=== PATIENT | female | born 2000 | race Caucasian/White ===

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

== ENCOUNTER 2021-01-04 18:23 | Inpatient (IN) | payer MEDICAID ==
[~2021-01-04] VITALS: Ht 162.6 cm; Wt 45.9 kg
[2021-01-04 20:45] LABS: BASO % 0.4 % (0.0-2.0); EOS # 0.1 (0.0-0.7); EOS % 0.5 % (0-4.0); GRAN # 8.3 (1.4-6.5); GRAN % 76.2 % (42.2-75.2); HEMOGLOBIN 11.9 g/dl (12.0-15.0); LYMPH # 1.6 (1.2-3.4); LYMPH % 14.4 % (20.0-51.0); MEAN CELL VOLUME 86 fl (80.0-95.0); MEAN CORPUSCULAR HEMOGLOBIN 31 pg (26.0-32.0); MEAN CORPUSCULAR HGB CONC 36 g/dl (33.0-37.0); MEAN PLATELET VOLUME 9.1 fl (7.4-10.4); MONO # 0.9 (0.1-0.6); PLATELET COUNT 224 K/mm3 (130-400); RED BLOOD COUNT 3.79 M/mm3 (4.10-5.30); REDCELL DISTRIBUTION WIDTH-CV 12.7 % (11.5-14.5)
[2021-01-04 20:46] LABS: HEMATOCRIT 32.7 % (35.0-45.0)
[2021-01-04 20:59] LABS: ALBUMIN 3.7 gm/dL (3.5-5.0); BILIRUBIN,TOTAL 0.2 mg/dL (0.0-1.0); CALCIUM 8.6 mg/dL (8.4-10.2); CREATININE, serum 0.47 (0.52-1.25); POTASSIUM 3.4 mmol/L (3.4-5.0); TOTAL PROTEIN 6.7 gm/dL (6.4-8.2)
[2021-01-04 21:42] LABS: COLLECTION METHOD CLEAN CATCH
[2021-01-04 21:48] LABS: MUCOUS Present /lpf; PH 7 (5-8); SQUAMOUS EPITHELIAL 0-2 /hpf; URINE APPEARANCE Hazy; URINE BACTERIA Rare /hpf; URINE BILIRUBIN Negative (NEGATIVE); URINE BLOOD 1+ (NEGATIVE); URINE COLOR Yellow; URINE GLUCOSE Negative (NEGATIVE); URINE KETONE 1+ (NEGATIVE); URINE LEUKOCYTE ESTERASE Trace (NEGATIVE); URINE NITRATE Negative (NEGATIVE); URINE PROTEIN(semi-quant) Negative (NEGATIVE); URINE UROBILINOGEN Negative (NEGATIVE)
[2021-01-05] VITALS (7 sets, daily range): BP systolic 97–118; BP diastolic 47–81; PULSE 77–99; TEMP 98–98.5
[2021-01-05] MEDS ORDERED: PRENATAL TABLET PO (00:10)
--- NOTE | 2021-01-05 00:12 | NUR ---
0012- REPORT RECEIVED FROM YESSENIA IN THE ED. 0035- PT PRESENTS TO UNIT PER WHEELCHAIR FROM ED TO ROOM 222, BELONGINGS WITH PT. NURSE TO BEDSIDE AND ORIENTS PT TO ROOM AND CALL LIGHTS. PLAN OF CARE DISCUSSED AND QUESTIONS ANSWERED. ASSESSMENT AND VITALS CHARTED. 0300- PT CALLS OUT WITH PAIN AND REQUESTS MEDICATION. NURSE INFORMS PT THAT SHE WILL BE AT BEDSIDE WITH PAIN MEDICATIONS AT 0330 WHEN THEY CAN BE GIVEN. 0330- PT SITTING UP IN BED ROCKING AND MOANING. MORPHINE AND ANN-MARIE PROVIDED FOR PAIN. PT REPORTS THAT SHE FEELS LIKE THE MORPHINE ISN'T DOING ANYTHING, EPISODE OF VOMITING. 0345- NURSE BACK TO BEDSIDE TO EVALUATE PAIN. PT REPORTS NO RELIEF. SHE HAS VOMITED AGAIN AND ANN-MARIE IS SEEN IN VOMITUS. DISCUSSED PLAN OF CARE FOR CALLING DOCTOR AND UPDATING ON DISCOMFORT. PT IS AGREEABLE.
--- NOTE | 2021-01-05 09:17 | NUR ---
Initial visit; Patient thanked Copyholder for looking in on her and offering God's blessings.
--- NOTE | 2021-01-05 09:27 | NUR ---
PATIENT WITH EPISODE OF EMESIS 50ML GREEN BILE
--- NOTE | 2021-01-05 11:00 | NUR ---
PATIENT LEAVES WITH RADIOLOGY IN WHEELCHAIR FOR IVP. IV TO INT FLUSHES WELL.
--- NOTE | 2021-01-05 11:30 | NUR ---
PATIENT RETURNS FROM IVP. IVF'S RECONNECT AND INFUSING AT 125ML/HR.
[2021-01-06] VITALS: BP 99/55; PULSE 95; TEMP 98.2
[2021-01-06 03:40] VITALS: BP 104/43; PULSE 102; TEMP 97.6
[2021-01-06 07:45] VITALS: BP 105/56; PULSE 82; TEMP 99.2
--- NOTE | 2021-01-06 10:25 | NUR ---
Discussed with patient that Dr. Ralph recommends to avoid IV pain medication if possible. Patient states "I just need something to take the edge off, I have been contantly hurting since 0500 and nothing we have done has helped". Patient informed she will be able to take percocet at 1100. Patiet requesting IV pain medication at this time.
[2021-01-06 11:39] LABS: COLLECTION METHOD CLEAN CATCH
[2021-01-06 11:48] LABS: MUCOUS Present /lpf; PH 7 (5-8); SQUAMOUS EPITHELIAL 0-2 /hpf; URINE APPEARANCE Clear; URINE BACTERIA Rare /hpf; URINE BILIRUBIN Negative (NEGATIVE); URINE BLOOD 1+ (NEGATIVE); URINE COLOR Straw; URINE GLUCOSE Negative (NEGATIVE); URINE KETONE 2+ (NEGATIVE); URINE LEUKOCYTE ESTERASE Negative (NEGATIVE); URINE NITRATE Negative (NEGATIVE); URINE PROTEIN(semi-quant) Negative (NEGATIVE); URINE RBC 0-2 /hpf; URINE UROBILINOGEN Negative (NEGATIVE); URINE WBC 0-2 /hpf
[2021-01-06 13:03] VITALS: BP 96/50; PULSE 95; TEMP 98.8
[2021-01-06 17:24] VITALS: BP 111/65; PULSE 96; TEMP 98.2
--- NOTE | 2021-01-06 19:45 | NUR ---
Pt rates pain a 7 on 1-10 scale stating 'the only thing that works is the stuff in the IV" Demerol given with Zofran. Pt's supper, mashed potatoes and green beans reheated. Pt states "I 've been here 2 days I just want the pain to go away" Discussed with pt that it may be unrealistic for the pain to be 0-1 and that our goal tonight will be to keep the pain @ a 3-4, while using as little IV pain medication as possible r/t IV med is a stronger narcotic and that all meds given cross the placenta barrier. Pt verbalizes understanding and starts eating her supper.
--- NOTE | 2021-01-06 21:00 | NUR ---
Pt ordered mashed potatoes and gravy and fresh green beans. ate 30%mashed potatoes and gravy and a few green beans. Denies nausea states "I'm just not hungry" Reports regular appetite prior to hospitalization. Reminded of snacks available in nourishment room on unit.
--- NOTE | 2021-01-06 21:15 | NUR ---
pt sitting "tailor sit" position on bed, leaning completely forward stating "this is really the only position that my back doesn't hurt", encouraged pt to try different positions. K-pad already in use.
[2021-01-06 21:30] VITALS: BP 102/53; PULSE 95; TEMP 97.9
--- NOTE | 2021-01-06 22:45 | NUR ---
pt reports "my IV site is sore and I think a little swollen" site with dime sized swelling, no redness, slight tender to palpation. Site DC'd
--- NOTE | 2021-01-06 23:00 | NUR ---
ice pack provided for back pain
--- NOTE | 2021-01-07 00:15 | NUR ---
doubled over in bed, tearful. Pt requests and receives Demerol 25mg IV
--- NOTE | 2021-01-07 02:15 | NUR ---
Pt awake watching tv. reports "I slept a little but I'm hurting" pain 5 on a 1-10 scale. Percocet offered. Pt states "I know I'm going to need the second one. I don't want to wait 45 minutes" 2 percocet given to help keep pain level decreased.
--- NOTE | 2021-01-07 03:30 | NUR ---
Pt sleeping, unaware of nurse's presence in doorway.
[2021-01-07 07:00] VITALS: BP 100/50; PULSE 72; TEMP 98.1
[2021-01-07 07:45] VITALS: BP 96/29; PULSE 79; TEMP 98.2
[2021-01-07 09:54] LABS: HEMOGLOBIN 11.2 g/dl (12.0-15.0); MEAN CELL VOLUME 89 fl (80.0-95.0); MEAN CORPUSCULAR HEMOGLOBIN 32 pg (26.0-32.0); MEAN CORPUSCULAR HGB CONC 35 g/dl (33.0-37.0); PLATELET COUNT 195 K/mm3 (130-400); RED BLOOD COUNT 3.56 M/mm3 (4.10-5.30); REDCELL DISTRIBUTION WIDTH-CV 12.9 % (11.5-14.5)
[2021-01-07 09:57] LABS: HEMATOCRIT 31.8 % (35.0-45.0)
[2021-01-07 10:00] LABS: ALANINE AMINOTRANSFERASE 15 U/L (4-34); ALBUMIN 3.6 gm/dL (3.5-5.0); ALKALINE PHOSPHATASE 50 U/L (50-136); ANION GAP 6 mmol/L (7-16); AST,SGOT 22 U/L (15-37); BILIRUBIN,TOTAL 0.3 mg/dL (0.0-1.0); CALCIUM 8.8 mg/dL (8.4-10.2); CARBON DIOXIDE 25 mmol/L (22-30); CHLORIDE 104 mmol/L (98-107); CREATININE, serum 0.52 (0.52-1.25); GLUCOSE 94 mg/dL (74-106); POTASSIUM 3.5 mmol/L (3.4-5.0); SODIUM 134 mmol/L (137-145)
[2021-01-07 10:03] LABS: BLOOD UREA NITROGEN < 2 mg/dL (7-17)
[2021-01-07 17:48] VITALS: BP 98/56; PULSE 96; TEMP 98.2
--- NOTE | 2021-01-07 17:49 | NUR ---
1745 TO MRI VIA WHEELCHAIR.
[2021-01-07 20:00] VITALS: BP 106/48; PULSE 101; TEMP 97.9
[2021-01-08 02:00] VITALS: BP 105/59; PULSE 84; TEMP 98.4
[2021-01-08 07:29] LABS: BASO % 0.3 % (0.0-2.0); EOS # 0.1 (0.0-0.7); EOS % 1.4 % (0-4.0); GRAN # 4.6 (1.4-6.5); GRAN % 70.3 % (42.2-75.2); HEMOGLOBIN 10.6 g/dl (12.0-15.0); LYMPH # 1.1 (1.2-3.4); LYMPH % 16.1 % (20.0-51.0); MEAN CELL VOLUME 88 fl (80.0-95.0); MEAN CORPUSCULAR HEMOGLOBIN 31 pg (26.0-32.0); MEAN CORPUSCULAR HGB CONC 36 g/dl (33.0-37.0); MONO # 0.8 (0.1-0.6); MONO % 11.6 % (1.7-9.3); PLATELET COUNT 193 K/mm3 (130-400); RED BLOOD COUNT 3.38 M/mm3 (4.10-5.30); REDCELL DISTRIBUTION WIDTH-CV 12.8 % (11.5-14.5)
[2021-01-08 07:32] LABS: HEMATOCRIT 29.8 % (35.0-45.0)
[2021-01-08 07:42] LABS: ALBUMIN 3.4 gm/dL (3.5-5.0); BILIRUBIN,TOTAL 0.3 mg/dL (0.0-1.0); CALCIUM 8.8 mg/dL (8.4-10.2); CREATININE, serum 0.44 (0.52-1.25); POTASSIUM 3.3 mmol/L (3.4-5.0); TOTAL PROTEIN 6.7 gm/dL (6.4-8.2)
[2021-01-08 08:18] VITALS: BP 96/48; PULSE 91; TEMP 98.3
[2021-01-08] MEDS ORDERED: PERCOCET 325 MG1 TA2 PO (08:32)
--- NOTE | 2021-01-08 11:15 | NUR ---
Patient given discharge instructions and verbalizes understanding. INT removed and patient tolerates well. 1120: Patient ambulates off unit with mother.
== END 2021-01-08 11:20 | disposition home or self-care (01) | DRG 832 ==
LOC: COL.ER 18:23 → OB 22:31
PROVIDERS: Student in an Organized Health Care Education/Training Program; Surgery; Urology; ADMIT Obstetrics & Gynecology
DX: O99.891 Other specified diseases and conditions complicating pregnancy (principal); N13.30 Unspecified hydronephrosis; O26.892 Other specified pregnancy related conditions, second trimester; R31.9 Hematuria, unspecified; Z20.822 Contact with and (suspected) exposure to COVID-19; Z3A.19 19 weeks gestation of pregnancy
CPT/HCPCS: OP; G0378; J0696; J2175; J2270; J2405; J3010; J3480; J7030; J7120; Q9967

== ENCOUNTER 2021-01-20 06:40 | Day surgery (SDC) | payer MEDICAID ==
[~2021-01-20] VITALS: Ht 162.6 cm; Wt 45.9 kg
[2021-01-20] VITALS (9 sets, daily range): BP systolic 99–121; BP diastolic 52–65; PULSE 71–100; TEMP 98.5–98.8
[~2021-01-20 06:40] MED LIST: PERCOCET 325 MG1 TA2 PO; PRENATAL TABLET PO
[2021-01-20] MEDS ORDERED: NORCO 325 MG-51 TAB PO ×2 (07:44→10:27)
[2021-01-20] MEDS ORDERED: OMNICEF 300MG300 MG PO (07:44)
--- NOTE | 2021-01-20 10:45 | NUR ---
Patient returns to room 7 per cart from PACU accompanied by Usha PETTIT and is awake and alert. IV fluids infusing and site is free of redness or swelling. Temp 98.0 and room air sats 98%. Patient received spinal anesthesia and is able to feel nurse touching knee and up the thigh. Legs warm to touch. Siderails up x2 and call light in reach. Allowed to rest.
--- NOTE | 2021-01-20 11:00 | NUR ---
Eating toast and drinking orange juice. Sats 100%. Able to wiggle toes.
--- NOTE | 2021-01-20 11:15 | NUR ---
Offers no complaints of pain. Taking fluids.
--- NOTE | 2021-01-20 11:30 | NUR ---
Room air sats 96%. Able to wiggle toes.
--- NOTE | 2021-01-20 11:45 | NUR ---
Assisted up to the BSC. States legs feel wobbley. Unable to void and returns to cart.
--- NOTE | 2021-01-20 12:15 | NUR ---
Resting and snacking on crackers.
--- NOTE | 2021-01-20 12:45 | NUR ---
Resting and denies need for pain medication. IV fluids continue to infuse.
--- NOTE | 2021-01-20 13:40 | NUR ---
Able to stand and is able to walk to the bathroom. IV converted to INT. Voids and returns to room.
--- NOTE | 2021-01-20 13:55 | NUR ---
INT needle discontinued and site is free of redness. Patient is able to dress self. Ride notified patient is ready for discharge.
--- NOTE | 2021-01-20 14:07 | NUR ---
Dismissal instructions given and voices understanding of these.
--- NOTE | 2021-01-20 14:10 | NUR ---
Patient dismissed to home driven by grandfather. Assisted into vehicle with instructions in hand.
== END 2021-01-20 14:10 | disposition home or self-care (01) ==
LOC: SDCO 06:40
DX: R10.11 Right upper quadrant pain (principal); N39.0 Urinary tract infection, site not specified; J45.990 Exercise induced bronchospasm; F41.9 Anxiety disorder, unspecified; J45.909 Unspecified asthma, uncomplicated; Z85.828 Personal history of other malignant neoplasm of skin; Z79.891 Long term (current) use of opiate analgesic; Z79.899 Other long term (current) drug therapy
CPT/HCPCS: C1769; C1894; C2617; J0690; J2704; J3010; J7120; Q9967

== ENCOUNTER 2021-03-22 13:40 | Outpatient (CLI) | payer MEDICAID ==
[~2021-03-22] VITALS: Ht 162.6 cm; Wt 51.8 kg
[2021-03-22 13:40] VITALS: BP 126/71; PULSE 101; TEMP 98.1
[~2021-03-22 13:40] MED LIST changes: +NORCO 325 MG-51 TAB PO; +OMNICEF 300MG300 MG PO
[2021-03-22 14:39] VITALS: PULSE 78
--- NOTE | 2021-03-22 14:45 | NUR ---
1340 PATIENT HERE WITH COMPLAINTS OF SEVERE PAIN IN LEFT UPPER QUAD FOR LAST 30 MIN. EFM ON FHT 125 BABY VERY ACTIVE WITH ACCELERATION NOTED. ABDOMEN PALPATES SOFT AT ALL TIMES. SVE BY NINA CASE 0/HIGH, AMNIOTRACE NEGATIVE. NO FEVER. DR VIRK CALLED AND UPDATED AND ORDERS FOR IVF LR WIDE OPEN WITH RENAL ULTRASOUND ORDER, WITH UA.
[2021-03-22 15:00] LABS: COLLECTION METHOD CLEAN CATCH
--- NOTE | 2021-03-22 15:00 | NUR ---
1430 ULTRASOUND AT BEDSIDE. IV STARTED IN RIGHT WRIST FOR LR 1000 CC BOLUS HUNG
[2021-03-22 15:21] LABS: MUCOUS Present (NOT PRESENT); PH 5 (5-8); URINE APPEARANCE Cloudy (CLEAR/HAZY); URINE BACTERIA Rare (NONE SEEN); URINE BILIRUBIN Negative (NEGATIVE); URINE BLOOD Negative (NEGATIVE); URINE COLOR Yellow (YELLOW); URINE GLUCOSE Negative (NEGATIVE); URINE KETONE Negative (NEGATIVE); URINE LEUKOCYTE ESTERASE 2+ (NEGATIVE); URINE NITRATE Negative (NEGATIVE); URINE PROTEIN(semi-quant) Negative (NEGATIVE); URINE UROBILINOGEN Negative (NEGATIVE); URINE WBC >50 /hpf (0-2)
[2021-03-22 15:54] VITALS: BP 110/69; PULSE 88
--- NOTE | 2021-03-22 15:55 | NUR ---
1550 ALL LAB RESULTS CALLED TO DR VIRK AT THIS TIME.
--- NOTE | 2021-03-22 16:07 | NUR ---
1607 PATIENT UP WALKING HALLS WHILW WAITING ON ULTRASOUND RESULTS
[2021-03-22 16:25] VITALS: PULSE 88
--- NOTE | 2021-03-22 16:25 | NUR ---
2743 RENAL ULTRASOUND CALLED TO DR VIRK WITH REULTS. ORDERS TO DISMISS TO HOME. ALL DISCHARGE INSTRUCTIONS GIVEN TO PATIENT WITH VERBAL UNDERSTANDNG NOTED. DENIES NEEDS.
== END 2021-03-22 16:39 | disposition home or self-care (01) ==
LOC: LDRO 13:40 → LDR 13:40 → LDRO 13:41 → LDR 16:39 → LDRO 16:39
PROVIDERS: Obstetrics & Gynecology
DX: O26.893 Other specified pregnancy related conditions, third trimester (principal); Z3A.30 30 weeks gestation of pregnancy
CPT/HCPCS: OP; J7120

== ENCOUNTER 2021-05-12 16:25 | Outpatient (CLI) | payer MEDICAID ==
[~2021-05-12] VITALS: Ht 154.9 cm; Wt 53.6 kg
--- NOTE | 2021-05-12 16:15 | NUR ---
PT AMBULATORY TO UNIT C/O CONTRACTIONS 3-5 MINUTE APART WITH BLOOD TINGED TOILET PAPER AT SCHOOL THIS EVENING. CONTRACTIONS STARTED 2 HOURS AGO. PT DENIES LEAKING OF FLUID OR WATER BREAKING, AND REPORTS POSITIVE MOVEMENT.
[2021-05-12 17:00] VITALS: BP 119/56; PULSE 82; TEMP 98.8
[2021-05-12 17:30] VITALS: BP 103/64; PULSE 78
[2021-05-12 18:00] VITALS: BP 110/69; PULSE 96
[2021-05-12 18:27] VITALS: BP 126/75; PULSE 86
--- NOTE | 2021-05-12 18:46 | NUR ---
DISCHARGE INSTRUCTIONS REVIEWED AND UNDERSTOOD. DENIES FURTHER QUESTIONS OR CONCERNS. AMBULATORY FROM UNIT IN STABLE CONDITION AT THIS TIME.
== END 2021-05-12 18:46 | disposition home or self-care (01) ==
LOC: LDRO 16:25
DX: O47.1 False labor at or after 37 completed weeks of gestation (principal); Z3A.37 37 weeks gestation of pregnancy

== ENCOUNTER 2021-05-13 16:41 | Outpatient (CLI) | payer MEDICAID ==
[~2021-05-13] VITALS: Ht 154.9 cm; Wt 53.6 kg
--- NOTE | 2021-05-13 16:40 | NUR ---
Patient to LR5 via wheelchair, changed into gown, FHR/TOCO monitors placed. Patient states "been hernan every 4-5 minutes and having alot of pain in my back, had some fluid leak but has not continued". Patient denies any vaginal bleeding, recent intercourse, decreased movement. Plan of care discussed. 1650: SVE-/-2 and ballotable amniotest negative. White discharge noted on glove.
[2021-05-13 17:30] VITALS: BP 115/78; PULSE 121; TEMP 98.3
--- NOTE | 2021-05-13 17:30 | NUR ---
Patient takes own tylenol at this time, this RN at bedside. 2-500mg tablets at this time.
[2021-05-13 17:58] LABS: COLLECTION METHOD CLEAN CATCH
[2021-05-13 18:00] VITALS: PULSE 104
[2021-05-13 18:05] LABS: BASO % 0.1 % (0.0-2.0); EOS % 0.3 % (0.0-4.0); GRAN # 6.9 K/mm3 (1.4-6.5); GRAN % 73.6 % (42.2-75.2); LYMPH # 1.7 K/mm3 (1.2-3.4); LYMPH % 17.7 % (20.0-51.0); MEAN CELL VOLUME 83 fl (80.0-95.0); MEAN CORPUSCULAR HGB CONC 32 g/dl (33.0-37.0); MEAN PLATELET VOLUME 9.5 fl (7.4-10.4); MONO # 0.7 K/mm3 (0.1-0.6); MONO % 7.9 % (1.7-9.3); PLATELET COUNT 301 K/mm3 (130-400); RED BLOOD COUNT 3.61 M/mm3 (4.10-5.30)
[2021-05-13 18:07] LABS: MUCOUS Present (NOT PRESENT); PH 6 (5-8); SQUAMOUS EPITHELIAL 0-2 /hpf (0-10); URINE APPEARANCE Hazy (CLEAR/HAZY); URINE BACTERIA Rare /hpf (NONE SEEN); URINE BILIRUBIN Negative (NEGATIVE); URINE BLOOD Negative (NEGATIVE); URINE COLOR Yellow (YELLOW); URINE GLUCOSE Negative (NEGATIVE); URINE KETONE Negative (NEGATIVE); URINE LEUKOCYTE ESTERASE 2+ (NEGATIVE); URINE NITRATE Negative (NEGATIVE); URINE PROTEIN(semi-quant) Negative (NEGATIVE); URINE RBC 0-2 /hpf (0-2); URINE UROBILINOGEN Negative (NEGATIVE); URINE WBC 20-50 /hpf (0-2)
[2021-05-13 18:11] LABS: HEMATOCRIT 29.8 % (35.0-45.0); HEMOGLOBIN 9.6 g/dl (12.0-15.0); MEAN CORPUSCULAR HEMOGLOBIN 27 pg (26-32)
[2021-05-13 18:26] LABS: ALBUMIN 2.7 gm/dL (3.5-5.0); BILIRUBIN,TOTAL 0.2 mg/dL (0.2-1.2); CALCIUM 8.4 mg/dL (8.4-10.2); CREATININE, serum 0.73 mg/dL (0.57-1.11); POTASSIUM 3.5 mmol/L (3.5-4.5); TOTAL PROTEIN 7.1 gm/dL (6.2-8.1)
[2021-05-13 18:40] VITALS: BP 114/71; PULSE 99
--- NOTE | 2021-05-13 19:00 | NUR ---
Discharge instructions reviewed with pt. Questions invited and answered.Ambulatory off unit.
== END 2021-05-13 19:00 | disposition home or self-care (01) ==
LOC: LDRO 16:41 → LDR 17:00 → LDRO 19:00
PROVIDERS: Obstetrics & Gynecology
DX: O62.9 Abnormality of forces of labor, unspecified (principal); Z3A.37 37 weeks gestation of pregnancy

== ENCOUNTER 2021-05-22 23:41 | Outpatient (CLI) | payer MEDICAID ==
[~2021-05-22] VITALS: Ht 162.6 cm; Wt 54.5 kg
--- NOTE | 2021-05-22 23:55 | NUR ---
EFM AND TOCO APPLIED. PLAN OF CARE DISCUSSED AND PT VERBALIZED AN UNDERSTANDING. PT DENIES FURTHER NEEDS AT THIS TIME.
[2021-05-23 00:30] VITALS: BP 110/69; PULSE 100; TEMP 98.1
[2021-05-23 01:00] VITALS: BP 108/69; PULSE 93
--- NOTE | 2021-05-23 01:15 | NUR ---
DISCHARGE INSTRUCTIONS REVIEWED WITH PATIENT AND PATIENT VERBALIZED AN UNDERSTANDING. PT DENIES FURTHER QUESTIONS. PT GIVEN COPY OF DISCHARGE INSTRUCTIONS AND SUMMARY.
--- NOTE | 2021-05-23 01:23 | NUR ---
PT AMBULATED OFF UNIT IN STABLE UNDELIVERED CONDITION AT THIS TIME.
== END 2021-05-23 01:23 | disposition home or self-care (01) ==
LOC: LDRO 23:41 → LDR 23:54 → LDRO 05-23 01:23
DX: O62.9 Abnormality of forces of labor, unspecified (principal); Z3A.39 39 weeks gestation of pregnancy

== ENCOUNTER 2021-05-26 18:07 | Inpatient (IN) | payer MEDICAID ==
[~2021-05-26] VITALS: Ht 162.6 cm; Wt 54.5 kg
[2021-05-26] VITALS (20 sets, daily range): BP systolic 91–130; BP diastolic 60–85; PULSE 84–112; TEMP 98–98.2
--- NOTE | 2021-05-26 18:20 | NUR ---
1820- G1L0, 39.4, arrives on unit with c/o ctx that started at 1600 today, ctx currently every 2-3min. Pt states was seen in clinic and . Reports normal movement, denies any LOF. Bloody show noted to pants. 1821- Patient changes into clean gown. EFM placed x2. VS obtained. SVE by this RN , BOWI. Bloody show noted to glove with exam. Dr. Ralph on unit and updated on pt. See phyisican notification. 1830- IV to right FA. Routine labs obtained. LR bolus infusing. Report to Isabella Valdes RN who assumes care of pt.
[2021-05-26 18:43] LABS: BASO # 0.1 K/mm3 (0.0-0.2); BASO % 0.5 % (0.0-2.0); EOS % 0.1 % (0.0-4.0); GRAN # 11.2 K/mm3 (1.4-6.5); GRAN % 77.5 % (42.2-75.2); HEMOGLOBIN 11.2 g/dl (12.0-15.0); LYMPH % 14.1 % (20.0-51.0); MEAN CELL VOLUME 79 fl (80.0-95.0); MEAN CORPUSCULAR HEMOGLOBIN 27 pg (26-32); MEAN CORPUSCULAR HGB CONC 34 g/dl (33.0-37.0); MEAN PLATELET VOLUME 9.6 fl (7.4-10.4); MONO # 1.1 K/mm3 (0.1-0.6); MONO % 7.5 % (1.7-9.3); PLATELET COUNT 344 K/mm3 (130-400); RED BLOOD COUNT 4.23 M/mm3 (4.10-5.30); REDCELL DISTRIBUTION WIDTH-CV 13.6 % (11.5-14.5)
[2021-05-26 18:44] LABS: HEMATOCRIT 33.2 % (35.0-45.0)
--- NOTE | 2021-05-26 23:15 | NUR ---
2315- THIS RN TO BEDSIDE FOR SVE CHECK. PATIENT VOICES FEELING A LOT MORE PRESSURE. 2316- SVE, COMPLETE AND +1 STATION. DISCUSSED PLAN OF CARE FROM HERE AND PUSHING AND WHAT TO EXPECT. PATIENT VERBALIZED UNDERSTANDING. 2318- PROVIDER CALLED AND NOTIFIED, SEE PHYSICIAN NOTIFICATION. NURSERY STAFF NOTIFIED. WILL BEGIN PUSHING WITH PATIENT. 2325- THIS RN FIRST PUSH WITH PATIENT. PATIENT CONTINUES TO PUSH WITH EVERY CONTRACTION. 2335- PATIENT REQUESTING MIRROR. MIRROR BROUGHT IN AND PATIENT CONTINUES PUSHING. 2340- PROVIDER AT BEDSIDE. SEES PATIENT PUSHING AND STATES ITS TIME. PATIENT AND ROOM PREPPED FOR DELIVERY. NURSERY STAFF NOTIFIED. BERRY REMOVED AT THIS TIME WITH 150 URINE OUTPUT NOTED. 2353- OF VIABLE MALE . PLACED TO MOTHERS ABDOMEN WHERE NURSERY STAFF ASSUMES CARE. CORD CLAMP AND CUT BY FAMILY MEMBER. 2356- OF PLACENTA. PITOCIN STARTED PER PROTOCOL AT 333ML/HR. FUNDUS MASSAGED TO FIRM BY PROVIDER. PATIENT INTACT. PROVIDER VERBALIZES A 200 EBL. 0000- PATIENT AND ROOM CLEANED UP AND PUT BACK TOGETHER. NEW CHUX, PAD AND ICEPACK TO PERINUEM. VITALS STABLE. FUNDUS FIRM AND D2 WITH SMALL AMOUNT OF LOCHIA NOTED. RECOVERY STARTED.
[2021-05-27] VITALS (12 sets, daily range): BP systolic 103–134; BP diastolic 53–79; PULSE 73–112; TEMP 97.6–98.1
[2021-05-27 05:38] LABS: HEMATOCRIT 27.4 % (35.0-45.0)
--- NOTE | 2021-05-27 09:27 | NUR ---
Initial visit; Patient thanked Director Of Public Works for offering congratulations and God's blessings for the of her son. Director Of Public Works thanked patient for choosing [place].
--- NOTE | 2021-05-27 13:15 | NUR ---
TOSIN RN INFORMS THIS RN THAT THE MOTHER OF THE FATHER OF THE BABY (AGE 17) CALLS TO ASK NURSE A QUESTION. THIS RN ANSWERS AND THE WOMAN ASKS ABOUT "PROCESS OF PATERNITY TESTING." THIS RN DOES NOT GIVE ANY PT INFORMATION AT THIS TIME. THIS RN SAYS WE DO NOT DO PATERNITY TESTING ON SITE. THE WOMAN THEN ASKS IF I COULD DIRECT HER TO SOME INFORMATION. THIS RN GIVES PHONE NUMBER OF D[facility] ([employer]) AT THIS TIME.
[2021-05-28] MEDS ORDERED: FERRO-TIME325 MG PO (08:21)
[2021-05-28 08:30] VITALS: BP 107/66; PULSE 84; TEMP 98.1
--- NOTE | 2021-05-28 09:26 | NUR ---
powder worker met with patient to discuss needed resources. Baby's father Sami present at bedside. Sundar states that while he is still in high school, he is planning on being involved. Mother holding baby during interaction an very attentive to to baby. Mother reports that she has all needs to care for baby including crib, clothing, diapers, wipes and is planning to breastfeed. Mother verbalizes that her father is planning on bringing up the baby's carseat before discharge. Mother recently moved to [place]. For daycare, she is planning on utilizing her grandmother but if that doesn't work out she is going to plan on [place] [facility] at [place]. Mother is provided resource guide along with information for [facility]
== END 2021-05-28 11:40 | disposition home or self-care (01) | DRG 807 ==
LOC: LDRO 18:07 → OB 18:28 → LDR 18:28 → OB 05-27 03:00
PROVIDERS: ADMIT Obstetrics & Gynecology
PROC: 10E0XZZ Delivery of Products of Conception, External Approach (ICD-10-PCS; principal; 2021-05-27)
DX: O99.344 Other mental disorders complicating childbirth (principal); Z37.0 Single live birth; O90.81 Anemia of the puerperium; D64.9 Anemia, unspecified; O99.52 Diseases of the respiratory system complicating childbirth; J45.909 Unspecified asthma, uncomplicated; Z3A.39 39 weeks gestation of pregnancy
CPT/HCPCS: J2590; J7120

== ENCOUNTER 2024-01-04 21:46 | Emergency (ER) | payer MEDICAID ==
[~2024-01-04] VITALS: Ht 157.5 cm; Wt 52.7 kg
[~2024-01-04 21:46] MED LIST changes: +FERRO-TIME325 MG PO
[2024-01-04] MEDS ORDERED: Azithromycin 250 MG TAB PO ONE (23:15)
[2024-01-04 23:20] VITALS: BP 123/85; PULSE 91; TEMP 98.6
[2024-01-11] MEDS ORDERED: CEPHALEXIN500 M1 PO (21:19)
== END 2024-01-04 23:20 | disposition home or self-care (01) ==
LOC: COL.ER 21:46
DX: J02.9 Acute pharyngitis, unspecified (principal)